=== PATIENT | male | born 1985 | race Caucasian/White ===

== ENCOUNTER 2016-06-13 09:56 | Emergency (ER) | payer BC, MEDICAID, OTHER ==
[~2016-06-13] VITALS: Ht 172.7 cm; Wt 73.0 kg
[2016-06-13 10:00] VITALS: BP 119/61; PULSE 98; RESP 16; TEMP 98.3; O2SAT 100
[2016-06-13] MEDS ORDERED: SODIUM CHLOR 0.9% 1000 ML INJ 1,000 ML IV ONE (10:28)
[2016-06-13 10:30] VITALS: RESP 16; O2SAT 100
[2016-06-13] MEDS ORDERED: SODIUM CHLORIDE 0.9% FLUSH 10 ML FLUSH IVF PRN (10:30)
--- NOTE | 2016-06-13 10:31 | PD ---
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 He states he has some lightheadedness prior to the episode and every time he would sit up he would get lightheaded. He denies any chest pains, shortness of breath, or any other symptoms. He ate breakfast today. He admittedly has been out of the heat. He also noted that he had subjective fevers yesterday and today. Modifying Factors: None Associated Signs & Symptoms: Fevers, lightheadedness, syncope Risk Factors: None PFSH Past Medical History Medical History: Denies Significant Hx Tetanus Vaccination: > 5 Years Influenza Vaccination: Yes Past Surgical History Surgical History: No Previous Surgery Social History Alcohol Use: No Tobacco Use: No Substance Use: No Allergies-Medications (Allergen,Severity, Reaction): Coded Allergies: No Known Allergies (Unverified , 06/13/16) Reported Meds & Prescriptions Reported Meds & Active Scripts Active No Active Prescriptions or Reported Medications Review of Systems Except as stated in HPI: all other systems reviewed are Neg Physical Exam Narrative GENERAL: Well-developed young white male patient who is not currently in acute distress at awake and oriented 3. SKIN: Focused skin assessment warm/dry. HEAD: Atraumatic. Normocephalic. EYES: Pupils equal and round. No scleral icterus. No injection or drainage. ENT: No nasal bleeding or discharge. Mucous membranes pink and moist. NECK: Trachea midline. No JVD. CARDIOVASCULAR: Regular rate and rhythm. No murmur appreciated. RESPIRATORY: No accessory muscle use. Clear to auscultation. Breath sounds equal bilaterally. GASTROINTESTINAL: Abdomen soft, non-tender, nondistended. Hepatic and splenic margins not palpable. MUSCULOSKELETAL: No obvious deformities. No clubbing. No cyanosis. No edema. NEUROLOGICAL: Awake and alert. No obvious cranial nerve deficits. Motor grossly within normal limits. Normal speech. PSYCHIATRIC: Appropriate mood and affect; insight and judgment normal. Data Data Last Documented VS Vital Signs Date Time Temp Pulse Resp B/P Pulse Ox O2 Delivery O2 Flow Rate FiO2 4/26/17 11:11 89 16 121/72 100 Room Air 06/13/16 10:00 98.3 Orders Electrocardiogram (06/13/16 ) Electrocardiogram (06/13/16 10:28) Complete Blood Count With Diff (06/13/16 10:28) Comprehensive Metabolic Panel (06/13/16 10:28) Magnesium (Mg) (06/13/16 10:28) Ckmb (Isoenzyme) Profile (06/13/16 10:28) Troponin I (06/13/16 10:28) Act Partial Throm Time (Ptt) (06/13/16 10:28) Prothrombin Time / Inr (Pt) (06/13/16 10:28) Urinalysis - C+S If Indicated (06/13/16 10:28) Chest, Single Ap (06/13/16 10:28) Ecg Monitoring (06/13/16 10:28) Iv Access Insert/Monitor (06/13/16 10:28) Oximetry (06/13/16 10:28) Sodium Chloride 0.9% Flush (Ns Flush) (06/13/16 10:30) Sodium Chlor 0.9% 1000 Ml Inj (Ns 1000 M (06/13/16 10:28) Influenzae A/B Antigen (06/13/16 10:31) Drug Screen, Random Urine (06/13/16 10:31) Chest, Pa & Lat (06/13/16 11:10) CKMB (06/13/16 10:40) CKMB% (06/13/16 10:40) Labs Laboratory Tests Test 06/13/16 06/13/16 10:40 11:35 White Blood Count 7.7 TH/MM3 Red Blood Count 4.58 MIL/MM3 Hemoglobin 14.1 GM/DL Hematocrit 40.4 % Mean Corpuscular Volume 88.3 FL Mean Corpuscular Hemoglobin 30.9 PG Mean Corpuscular Hemoglobin 35.0 % Concent Red Cell Distribution Width 13.0 % Platelet Count 173 TH/MM3 Mean Platelet Volume 8.3 FL Neutrophils (%) (Auto) 83.0 % Lymphocytes (%) (Auto) 9.8 % Monocytes (%) (Auto) 6.4 % Eosinophils (%) (Auto) 0.5 % Basophils (%) (Auto) 0.3 % Neutrophils # (Auto) 6.4 TH/MM3 Lymphocytes # (Auto) 0.8 TH/MM3 Monocytes # (Auto) 0.5 TH/MM3 Eosinophils # (Auto) 0.0 TH/MM3 Basophils # (Auto) 0.0 TH/MM3 CBC Comment DIFF FINAL Differential Comment Prothrombin Time 11.6 SEC Prothromb Time International 1.0 RATIO Ratio Activated Partial 25.2 SEC Thromboplast Time Sodium Level 137 MEQ/L Potassium Level 4.3 MEQ/L Chloride Level 102 MEQ/L Carbon Dioxide Level 25.0 MEQ/L Anion Gap 10 MEQ/L Blood Urea Nitrogen 8 MG/DL Creatinine 1.27 MG/DL Estimat Glomerular Filtration 67 ML/MIN Rate Random Glucose 152 MG/DL Calcium Level 8.9 MG/DL Magnesium Level 2.2 MG/DL Total Bilirubin 0.4 MG/DL Aspartate Amino Transf 28 U/L (AST/SGOT) Alanine Aminotransferase 47 U/L (ALT/SGPT) Alkaline Phosphatase 65 U/L Total Creatine Kinase 207 U/L Creatine Kinase MB LESS THAN 0.5 NG/ML Troponin I 0.03 NG/ML Total Protein 7.9 GM/DL Albumin 3.7 GM/DL Urine Color YELLOW Urine Turbidity CLEAR Urine pH 7.5 Urine Specific [place] 1.011 Urine Protein TRACE mg/dL Urine Glucose (UA) NEG mg/dL Urine Ketones NEG mg/dL Urine Occult Blood NEG Urine Nitrite NEG Urine Bilirubin NEG Urine Urobilinogen LESS THAN 2.0 MG/DL Urine Leukocyte Esterase NEG Urine RBC 1 /hpf Urine WBC 2 /hpf Urine Squamous Epithelial <1 /hpf Cells Urine Bacteria RARE /hpf Urine Hyaline Casts 37 /lpf Urine Mucus FEW /lpf Microscopic Urinalysis Comment CULT NOT INDICATED MDM Medical Decision Making Medical Screen Exam Complete: Yes Emergency Medical Condition: Yes Medical Record Reviewed: Yes Interpretation(s) EKG shows normal sinus rhythm at a rate of 96 bpm with no signs of acute ST-T changes. I do not see any signs of delta waves or QTC prolongation. Laboratory Tests Test 06/13/16 06/13/16 10:40 11:35 Neutrophils (%) (Auto) 83.0 % (16.0-70.0) Lymphocytes # (Auto) 0.8 TH/MM3 (1.0-4.8) Estimat Glomerular Filtration 67 ML/MIN (>89) Rate Random Glucose 152 MG/DL (74-106) Creatine Kinase MB LESS THAN 0.5 NG/ML (0.5-3.6) Urine Bacteria RARE /hpf (NONE) Urine Mucus FEW /lpf (OCC) Last 24 hours Impressions Chest X-Ray 06/13/16 1028 Signed Impressions: Service Date/Time: Monday, June 13, 2016 10:26 - CONCLUSION: 7 mm nodular opacity left upper lobe. Good PA and lateral film is suggested. Tadeo Zuniga MD FACR Differential Diagnosis Subjective fevers, lightheadedness, syncopeviral syndrome versus dehydration versus metabolic issues versus orthostasis versus heat related illness versus dysrhythmias Narrative Course Chest x-ray was unremarkable. EKG did not show any signs of dysrhythmias, delta waves, or QTC prolongation. Lab work did not indicate significant metabolic issues or kidney failure. Vital signs are stable in the ER. His suspect that he may have had some underlying dehydration and heat related syncope at this point. He was given IV fluids and on reevaluation at 12:30 PM, he is feeling much improved. He is ambulatory in the ER without issues. At this point, my plan would be to release the patient would follow-up to primary care physician. Drink plenty of fluids and stay out of the heat. The plan was discussed with the patient and he states understanding. Diagnosis Primary Impression: Syncope Scripts No Active Prescriptions or Reported Meds Disposition: 01 DISCHARGE HOME Condition: Stable Leda Tariq MD Jun 13, 2016 10:31
--- NOTE | 2016-06-13 10:52 | RADRPT ---
EXAM DATE/TIME: 06/13/2016 10:26 [facility] COMPARISON: No previous studies available for comparison. 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 MEDICAL HISTORY : None. SURGICAL HISTORY : ENCOUNTER: Initial ACUITY: 1 day PAIN SCORE: 0/10 LOCATION: Bilateral chest FINDINGS: There is very small 7 mm nodular opacity in the left upper lobe. Right lung is clear.. The cardiome diastinal contours are unremarkable. Osseous structures are intact. CONCLUSION: 7 mm nodular opacity left upper lobe. Good PA and lateral film is suggested. Tadeo Zuniga MD FACR on June 13, 2016 at 10:49 Board Certified Radiologist. This report was verified electronically.
[2016-06-13 11:07] LABS: AUTOMATED NEUTROPHIL # 6.4 TH/MM3 (1.8-7.7); BASOPHIL % 0.3 % (0.0-2.0); EOSINOPHIL % 0.5 % (0.0-4.0); HEMATOCRIT 40.4 % (39.0-51.0); HEMO FLAGS DIFF FINAL; LYMPH % 9.8 % (9.0-44.0); LYMPHOCYTE # 0.8 TH/MM3 (1.0-4.8); MEAN CELL VOLUME 88.3 FL (80.0-100.0); MEAN CORPUSCULAR HEMOGLOBIN 30.9 PG (27.0-34.0); MONO % 6.4 % (0.0-8.0); PLATELET COUNT 173 TH/MM3 (150-450); RED BLOOD COUNT 4.58 MIL/MM3 (4.50-5.90); WHITE BLOOD COUNT 7.7 TH/MM3 (4.0-11.0)
[2016-06-13 11:11] VITALS: BP 121/72; PULSE 89; RESP 16; O2SAT 100
[2016-06-13 11:19] LABS: APTT (PATIENT) 25.2 SEC (24.3-30.1); PROTHROMBIN TIME - PATIENT 11.6 SEC (9.8-11.6)
[2016-06-13 11:22] LABS: ANION GAP 10 MEQ/L (5-15); AST (GOT) 28 U/L (15-37); BLOOD UREA NITROGEN 8 MG/DL (7-18); CHLORIDE 102 MEQ/L (98-107); GLOMERULAR FILTRATION RATE 67 ML/MIN (>89); MAGNESIUM 2.2 MG/DL (1.5-2.5); POTASSIUM 4.3 MEQ/L (3.5-5.1); SODIUM (NA) 137 MEQ/L (136-145)
[2016-06-13 11:27] LABS: ALKALINE PHOSPHATASE 65 U/L (45-117); ALT (GPT) 47 U/L (12-78); CREATINE KINASE 207 U/L (39-308); TOTAL BILIRUBIN ADULT 0.4 MG/DL (0.2-1.0)
[2016-06-13 11:49] LABS: CKMB LESS THAN 0.5 NG/ML (0.5-3.6)
[2016-06-13 12:11] LABS: BACTERIA, URINE RARE /hpf; BLOOD, URINE NEG (NEG); COMMENT (UR) CULT NOT INDICATED; CULTURE IF INDICATED CULT NOT INDICATED; GLUCOSE,URINE NEG (NEG); HYALINE CAST, URINE 37 /lpf (RARE); KETONE, URINE NEG (NEG); MUCUS URINE FEW /lpf (OCC); NITRITE,URINE NEG (NEG); PH, URINE 7.5 (5.0-8.5); SQUAMOUS EPITHELIAL CELL URINE <1 /hpf (0-5); URINE COLOR YELLOW (YELLW/STRAW)
--- NOTE | 2016-06-13 12:17 | RADRPT ---
EXAM DATE/TIME: 06/13/2016 12:10 [facility] COMPARISON: CHEST SINGLE AP, June 13, 2016, 10:26. INDICATIONS : Evaluate 7 mm nodular opacity in the left upper lobe as seen on prior chest x-ray. Syncope.. MEDICAL HISTORY : None. SURGICAL HISTORY : None. ENCOUNTER: Subsequent ACUITY: 1 day PAIN SCORE: 0/10 LOCATION: Left upper chest FINDINGS: PA and lateral views of the chest demonstrate the lungs to be symmetrically aerated without evidence of mass, infiltrate or effusion. The previously noted small nodular opacity projected over the left l shukri apex is no longer visualized. The cardiomediastinal contours are unremarkable. Osseous structure s are intact. CONCLUSION: No acute disease. The previously noted small nodular opacity projected over the le ft lung apex is no longer visualized and likely was artifactual. Filemon Kovacs MD on June 13, 2016 at 12:13 Board Certified Radiologist. This report was verified electronically.
[2016-06-13 12:34] VITALS: BP 122/77; TEMP 97.8
[2016-06-13 12:43] LABS: AMPHETAMINE, URINE NEG (NEG); BARBITURATES, URINE NEG (NEG); COCAINE, URINE NEG (NEG)
--- NOTE | 2016-06-13 19:08 | EKG ---
Date Performed: 06/13/2016 Time Performed: 10:05:53 PTAGE: 30 years EKG: Sinus rhythm NORMAL ECG Borderline LVH NO PREVIOUS TRACING DOCTOR: Amina Prather Interpretating Date/Time 06/13/2016 19:07:42
== END 2016-06-13 12:34 | disposition home or self-care (01) ==
LOC: NEPE 09:56
DX: R55 Syncope and collapse (principal); R91.8 Other nonspecific abnormal finding of lung field
CPT/HCPCS: 71010; 71020; 80053; 80307; 81001; 82550; 82552; 83735; 84484; 85025; 85610; 85730; 87804; 93005; 96360; 99284; J7030